=== PATIENT | female | born 1970 | race African-American/Black ===

== ENCOUNTER 2018-01-02 13:57 | Inpatient (IN) ==
--- NOTE | 2018-01-02 19:49 | ED ---
HPI General Chief Complaint: Nausea/Vomiting/Diarrhea Stated Complaint: Vomitting Time Seen by Provider: 01/02/18 19:38 Source: patient Mode of arrival: ambulatory Limitations: no limitations History of Present Illness HPI Narrative: The patient is a 47-year-old -[place] female who presents to the emergency for multiple complaints. The patient states she has been sleeping outside on the porch over the last several nights. The patient states she developed a subjective fever last night, felt like she was "burning up", and felt like her blood pressure was elevated. The patient then developed a bilateral frontal to temporal pulsating and sharp stabbing headache which is intermittent. Patient also complains of chills and a dry nonproductive cough. She denies any nausea, vomiting, diarrhea, or abdominal pain. She denies any dysuria. Symptoms are moderate. There are no current alleviating or exacerbating factors. The patient states she has been noncompliant with her antihypertensive medication for the last week. MD Complaint: headache Onset (ago): day(s) Onset description: gradual Location: frontal and temporal Severity: moderate Severity scale (1-10): 5 Quality: pulsatile and sharp Relieving factors: nothing Exacerbating factors: none Associated symptoms: fever and cough Other symptoms: cough and malaise Treatments prior to arrival: none Related Data Home Medications Medication Instructions Recorded Confirmed Unable to Obtain Home Meds 01/02/18 01/02/18 Allergies Allergy/AdvReac Type Severity Reaction Status Date / Time No Known Allergies Allergy Unverified 01/02/18 19:50 Review of Systems Except as stated in HPI: all other systems reviewed are negative Constitutional Reports body ache(s) and Reports fever(s) ENT Denies dizziness Cardiovascular Denies chest pain and Denies diaphoresis Respiratory Reports cough Gastrointestinal Denies abdominal pain, Denies nausea and Denies vomiting Genitourinary Denies dysuria Neurologic Denies focal weakness PMFSH Medical History Medical History Patient denies medical problems (Acute) Surgical history unknown (Acute) Social History Social History Substance History: No History of Abuse Second Hand Smoke Exposure: No Smoking Status: Never smoker How Often Do You Have a Drink Containing Alcohol: Monthly or less Recent Travel in [facility] within the Last 8 Weeks: No Recent Out of Country Travel within the Last 8 Weeks: No Exam Narrative Exam Narrative: GENERAL: Awake, alert, pleasant 47-year-old female appears her stated age and is in no acute respiratory distress. SKIN: Focused skin assessment warm/dry. HEAD: Atraumatic. Normocephalic. EYES: Pupils equal and round. Pupils are 3 mm bilateral and reactive. No injection or drainage. ENT: No nasal bleeding or discharge. Mucous membranes pink and moist. NECK: Trachea midline. No JVD. No meningeal signs. CARDIOVASCULAR: Regular rate and rhythm. No murmur appreciated. RESPIRATORY: No accessory muscle use. Clear to auscultation. Breath sounds equal bilaterally. GASTROINTESTINAL: Abdomen soft, non-tender, nondistended. No rebound tenderness , guarding, or rigidity. MUSCULOSKELETAL: No obvious deformities. No clubbing. No cyanosis. No edema. NEUROLOGICAL: Awake and alert. No obvious cranial nerve deficits. Motor grossly within normal limits. Normal speech. Nonfocal on exam. PSYCHIATRIC: Appropriate mood and affect; insight and judgment normal. Course Consultations Consultation #1: I discussed the patient with Dr. Buck who agrees with admission, will request full admit as patient does have Sirs criteria with Rock ptosis, bandemia, and acute kidney injury. Time: 00:01 Initial Documented Vital Signs Temperature 99.1 F 01/02/18 14:41 Pulse Rate 118 H 01/02/18 14:41 Blood Pressure 165/93 H 01/02/18 14:41 Pulse Oximetry 95 01/02/18 14:41 Last Documented Vital Signs Temperature 99.0 F 01/02/18 23:50 Pulse Rate 89 01/02/18 21:49 Respiratory Rate 18 01/02/18 21:49 Blood Pressure 126/82 01/02/18 21:49 Pulse Oximetry 98 01/02/18 21:49 Medical Decision Making [facility] Narrative Medical decision making narrative: IV was established, labs are drawn and sent, the patient was placed on cardiac telemetry monitoring and continuous pulse oximetry monitoring. The patient was administered morphine, Reglan, Benadryl, and IV fluids for her headache. Bedside UA test was obtained, was negative. CT of the brain was obtained. Chest x-ray was obtained, negative for infiltrate. Influenza screen was sent to lab, negative. The patient's white count was elevated, lactic acid is elevated at 2.9, CBC does reveal bandemia. Therefore, blood cultures were sent to lab. UA reveals 177 WBCs, most likely a source of the patient's sepsis. Therefore, the patient was administered Rocephin 1 g intravenously while cultures are pending. CT the brain is negative. The patient has been admitted to the medical service. Differential Diagnosis Differential Diagnosis: Differential diagnosis includes tension headache, hypertensive urgency, subarachnoid hemorrhage, meningitis, influenza, pyelonephritis, pneumonia, bronchitis, viral syndrome. Lab Data Lab results reviewed: Yes I reviewed the patient's lab results. Lab results narrative: White count is elevated at 13.7 with bandemia of 13%. Lactic acid elevated at 2.9 with bicarbonate decreased at 18. The patient's creatinine is elevated at 2.0. UA reveals 177 WBCs, consistent with UTI/ pyelonephritis. Result diagrams: 01/02/18 20:42 01/02/18 20:42 Lab Results 01/02/18 01/02/18 01/02/18 Range/Units 20:42 20:42 22:15 WBC 13.7 H (4.0-11.0) th/mm3 RBC 4.43 (4.00-5.30) mil/mm3 Hgb 13.2 (11.6-15.3) gm/dL Hct 39.7 (35.0-46.0) % MCV 89.8 (80.0-100.0) fL MCH 29.7 (27.0-34.0) pg MCHC 33.1 (32.0-36.0) % RDW 14.2 (11.6-17.2) % Plt Count 127 L (150-450) th/mm3 MPV 10.4 (7.0-11.0) fL Prelim Diff (Auto) Slide review pending Neut % (Auto) 86.9 H (16.0-70.0) % Lymph % (Auto) 3.4 L (9.0-44.0) % Dawson % (Auto) 9.4 H (0.0-8.0) % Eos % (Auto) 0.1 (0.0-4.0) % Baso % (Auto) 0.2 (0.0-2.0) % Neut # (Auto) 11.9 H (1.8-7.7) th/mm3 Lymph # (Auto) 0.5 L (1.0-4.8) th/mm3 Dawson # (Auto) 1.3 H (0.0-0.9) th/mm3 Eos # (Auto) 0.0 (0.0-0.4) th/mm3 Baso # (Auto) 0.0 (0.0-0.2) th/mm3 WBC Differential Manual diff final Seg Neuts % (Manual) 78 H (16-70) % Band Neuts % (Manual) 13 H (0-6) % Lymphocytes % (Manual) 4 L (9-44) % Monocytes % (Manual) 5 (0-8) % Abs Neuts (Manual) 12.5 H (1.8-7.7) th/mm3 Differential Comment . Dohle Bodies Present H (None) Platelet Estimate Low L (Normal) Platelet Morphology Enlarged H (Normal) Sodium 132 L (136-145) meq/L Potassium 3.2 L (3.5-5.1) meq/L Chloride 95 L (98-107) meq/L Carbon Dioxide 18.6 L (21.0-32.0) meq/L Anion Gap 18 H (5-15) meq/L BUN 23 H (7-18) mg/dL Creatinine 2.00 H (0.50-1.00) mg/dL Estimated GFR 33 L (>89) mL/min Random Glucose 103 (74-106) mg/dL Lactic Acid 2.9 H (0.4-2.0) mmol/L Calcium 9.0 (8.5-10.1) mg/dL Total Bilirubin 1.3 H (0.2-1.0) mg/dL AST 87 H (15-37) U/L ALT 48 (10-53) U/L Alkaline Phosphatase 86 (45-117) U/L Total Protein 9.3 H (6.4-8.2) g/dL Albumin 2.9 L (3.4-5.0) g/dL Urine Color (Yellw/Straw) Urine Clarity (Clear) Urine pH (5.0-8.5) Ur Specific [place] (1.002-1.035) Urine Protein (Neg-Trace) mg/dL Urine Glucose (UA) (Negative) mg/dL Urine Ketones (Negative) mg/dL Urine Occult Blood (Negative) Urine Nitrate (Negative) Urine Bilirubin (Negative) Urine Urobilinogen (Less than 2) mg/dL Ur Leukocyte Esterase (Negative) Urine RBC (0-3) /hpf Urine WBC (0-5) /hpf Urine WBC Clumps (None) Ur Squamous Epith Cells (0-5) /hpf Urine Bacteria (None) /hpf Hyaline Casts (0-3) /lpf Urine Mucus (Occasional) /lpf Micro UA Comment Urine Culture Comments 01/02/18 Range/Units 23:06 WBC (4.0-11.0) th/mm3 RBC (4.00-5.30) mil/mm3 Hgb (11.6-15.3) gm/dL Hct (35.0-46.0) % MCV (80.0-100.0) fL MCH (27.0-34.0) pg MCHC (32.0-36.0) % RDW (11.6-17.2) % Plt Count (150-450) th/mm3 MPV (7.0-11.0) fL Prelim Diff (Auto) Neut % (Auto) (16.0-70.0) % Lymph % (Auto) (9.0-44.0) % Dawson % (Auto) (0.0-8.0) % Eos % (Auto) (0.0-4.0) % Baso % (Auto) (0.0-2.0) % Neut # (Auto) (1.8-7.7) th/mm3 Lymph # (Auto) (1.0-4.8) th/mm3 Dawson # (Auto) (0.0-0.9) th/mm3 Eos # (Auto) (0.0-0.4) th/mm3 Baso # (Auto) (0.0-0.2) th/mm3 WBC Differential Seg Neuts % (Manual) (16-70) % Band Neuts % (Manual) (0-6) % Lymphocytes % (Manual) (9-44) % Monocytes % (Manual) (0-8) % Abs Neuts (Manual) (1.8-7.7) th/mm3 Differential Comment Dohle Bodies (None) Platelet Estimate (Normal) Platelet Morphology (Normal) Sodium (136-145) meq/L Potassium (3.5-5.1) meq/L Chloride (98-107) meq/L Carbon Dioxide (21.0-32.0) meq/L Anion Gap (5-15) meq/L BUN (7-18) mg/dL Creatinine (0.50-1.00) mg/dL Estimated GFR (>89) mL/min Random Glucose (74-106) mg/dL Lactic Acid (0.4-2.0) mmol/L Calcium (8.5-10.1) mg/dL Total Bilirubin (0.2-1.0) mg/dL AST (15-37) U/L ALT (10-53) U/L Alkaline Phosphatase (45-117) U/L Total Protein (6.4-8.2) g/dL Albumin (3.4-5.0) g/dL Urine Color Deborah (Yellw/Straw) Urine Clarity Turbid H (Clear) Urine pH 5.0 (5.0-8.5) Ur Specific [place] 1.014 (1.002-1.035) Urine Protein 100 H (Neg-Trace) mg/dL Urine Glucose (UA) Negative (Negative) mg/dL Urine Ketones Negative (Negative) mg/dL Urine Occult Blood Large H (Negative) Urine Nitrate Negative (Negative) Urine Bilirubin Negative (Negative) Urine Urobilinogen 2.0 H (Less than 2) mg/dL Ur Leukocyte Esterase Large H (Negative) Urine RBC 30 H (0-3) /hpf Urine WBC 177 H (0-5) /hpf Urine WBC Clumps Occasional H (None) Ur Squamous Epith Cells 7 (0-5) /hpf Urine Bacteria Many H (None) /hpf Hyaline Casts 8 (0-3) /lpf Urine Mucus Few H (Occasional) /lpf Micro UA Comment Culture indicated Urine Culture Comments Culture indicated Imaging Data Radiologist's impression: Chest X-Ray 01/02/18 19:53 CONCLUSION: No acute cardiopulmonary process. Head CT 01/03/18 19:50 CONCLUSION: Negative CT Head non contrast. ECG Data EKG Prior to Arrival: No Attestation: I personally reviewed and interpreted this ECG as follows: Interpretation: The EKG reveals normal sinus rhythm with a rate of 93, no ischemia or ectopy noted. Discharge Plan Discharge Disposition Patient Disposition: 30 Still Patient Discharge Condition Condition: Stable Discharge Details Diagnosis: SIRS (systemic inflammatory response syndrome), Bandemia, Acute kidney injury, Pyelonephritis Physicians Team ED Provider: Hill Smith Primary Care Provider: Primary Care Arlin Siu Attending Provider: Yecenia Buck Discharge Interventions Interventions: Vital Signs Last Done: 01/02/18 23:50 Status ED Status: Admitted Patient
[2018-01-02] MEDS ORDERED: Acetaminophen 325 MG Tablet PO ONE (19:50)
[2018-01-02] MEDS ORDERED: Morphine Sulfate Inj 8 MG/ML Vial IV.PUSH ONE (19:50)
[2018-01-02] MEDS ORDERED: Sod Chloride 0.9% Inj 1,000 ML IV.SIG ONE ×2 (19:50→23:16)
--- NOTE | 2018-01-02 21:32 | XR ---
EXAM DATE: 01/02/2018 9:17 PM EDT AGE/SEX: 47 years / Female INDICATIONS: Chest pain and cough. CLINICAL DATA: This is the patient's initial encounter. Patient reports that signs and symptoms have been present for 1 day and indicates a pain score of 3/10. MEDICAL/SURGICAL HISTORY: None. None. COMPARISON: No prior exams available for comparison. FINDINGS: A single AP view of the chest demonstrates the lungs to be symmetrically aerated without evidence of mass, infiltrate or effusion. The cardiomediastinal contours are unremarkable. Osseous structures a re intact. CONCLUSION: No acute cardiopulmonary process. Electronically signed by: Pankaj Raymundo MD 01/02/2018 9:30 PM EDT
[2018-01-02 21:41] LABS: Baso % (Auto) 0.2 % (0.0-2.0); Eos % (Auto) 0.1 % (0.0-4.0); Hematocrit 39.7 % (35.0-46.0); Hemoglobin 13.2 gm/dL (11.6-15.3); Lymph # (Auto) 0.5 th/mm3 (1.0-4.8); Lymph % (Auto) 3.4 % (9.0-44.0); Mean Corpuscular HGB Conc 33.1 % (32.0-36.0); Mean Corpuscular Hemoglobin 29.7 pg (27.0-34.0); Mean Corpuscular Volume 89.8 fL (80.0-100.0); Mean Platelet Volume 10.4 fL (7.0-11.0); Mono # (Auto) 1.3 th/mm3 (0.0-0.9); Mono % (Auto) 9.4 % (0.0-8.0); Neut # (Auto) 11.9 th/mm3 (1.8-7.7); Neut % (Auto) 86.9 % (16.0-70.0); Platelet Count 127 th/mm3 (150-450); Red Blood Count 4.43 mil/mm3 (4.00-5.30); Red Cell Distribution Width 14.2 % (11.6-17.2); White Blood Count 13.7 th/mm3 (4.0-11.0)
[2018-01-02 21:54] LABS: Albumin 2.9 g/dL (3.4-5.0); Anion Gap 18 meq/L (5-15); Aspartate Aminotransferase 87 U/L (15-37); Blood Urea Nitrogen 23 mg/dL (7-18); Carbon Dioxide 18.6 meq/L (21.0-32.0); Chloride 95 meq/L (98-107); Glomerular Filtration Rate 33 mL/min (>89); Glucose,Random 103 mg/dL (74-106); Potassium 3.2 meq/L (3.5-5.1); Sodium 132 meq/L (136-145)
[2018-01-02 21:56] LABS: Alanine Aminotransferase 48 U/L (10-53)
[2018-01-02 21:59] LABS: Alkaline Phosphatase 86 U/L (45-117); Total Protein 9.3 g/dL (6.4-8.2)
[2018-01-02 22:34] LABS: Lymphocytes 4 % (9-44); Monocytes 5 % (0-8)
[2018-01-02 22:35] LABS: Dohle Bodies Present
[2018-01-02] MEDS ORDERED: Bisacodyl 10 MG Supp RECTAL PRN (23:57)
[2018-01-02] MEDS ORDERED: Temazepam 15 MG Capsule PO PRN (23:57)
[2018-01-03 00:11] LABS: Bacteria,Urine Many /hpf; Bilirubin,Urine Negative (Negative); Clarity,Urine Turbid (Clear); Color,Urine Amber (Yellw/Straw); Glucose,Urine (UA) Negative (Negative); Hyaline Casts,Urine 8 /lpf (0-3); Leukocyte Esterase,Urine Large (Negative); Mucus,Urine Few /lpf (Occasional); Nitrite,Urine Negative (Negative); Specific Gravity,Urine 1.014 (1.002-1.035); Squamous Epithelial Cell,Urine 7 /hpf (0-5)
--- NOTE | 2018-01-03 00:23 | CT ---
EXAM DATE: 01/03/2018 12:17 AM EDT AGE/SEX: 47 years / Female INDICATIONS: Cephalgia. CLINICAL DATA: This is the patient's initial encounter. Patient reports that signs and symptoms have been present for 2 days and indicates a pain score of 5/10. MEDICAL/SURGICAL HISTORY: None. None. RADIATION DOSE: 56.77 CTDI (mGy) COMPARISON: No prior exams available for comparison. TECHNIQUE: CT of the head without contrast. Using automated exposure control and adjustment of the mA and/or kV according to patient size, radiation dose was kept as low as reasonably achievable to ob tain optimal diagnostic quality images. DICOM format image data is available electronically for revi ew and comparison. FINDINGS: Cerebrum: The ventricles are normal for age. No evidence of midline shift, mass lesion, hemorrhage or acute infarction. No extraaxial fluid collections are seen. Posterior Fossa: The cerebellum and brainstem are intact. The 4th ventricle is midline. The cerebe llopontine angle is unremarkable. Extracranial: The visualized portion of the orbits is intact. Skull: The calvaria is intact. No evidence of skull fracture. CONCLUSION: Negative CT Head non contrast. Electronically signed by: Pankaj Little MD 01/03/2018 12:22 AM EDT
[2018-01-03] MEDS: Sod Chloride 0.9% Inj 1,000 ML IV.CONT SCH ×3 (01:31→20:41)
--- NOTE | 2018-01-03 01:55 | P.HPIM ---
History of Present Illness Primary Care Physician: No Primary Care Physician History of Present Illness: This is a 47-year-old female with a PMH of HTN who presented to the ER with complaints of malaise, subjective fever/chills and headache. Pt is poor historian, difficult to obtain concrete information, but states she stopped taking her BP medications approx 1 month ago, in addition to several other medications but cannot tell me which ones. Notes ongoing headache since then. Now w/ fever/chills x1 day in addition to generalized fatigue/malaise. Denies cough, chest pain or sick contacts. No nausea, vomiting or diarrhea. On arrival, BP 126/82, HR 89, O2 sat 98% on RA, Temp 100.8. WBC 13.7. Platelets 127, bands 13%. Creatinine 2.0, no previous labs for comparison. Lactic Acid 2.9. UA positive UTI. CXR with no acute findings. CT Head negative. - Diagnosis (1) SIRS (systemic inflammatory response syndrome) (2) BESSY (acute kidney injury) (3) UTI (urinary tract infection) Inpatient Certification: I certify that the inpatient services were ordered in accordance with Medicare regulations governing the order. This includes certification that hospital inpatient services are reasonable and necessary and in the case of services not specified as inpatient-only under 42 CFR 419.22(n), that they are appropriately provided as inpatient services in accordance to with the 2-midnight benchmark under 43 CFR 412.3(e) Estimated Total Length of Stay (Days): 2 Plans for Post Hospital Care: Not yet determined Review of Systems All other systems reviewed negative except as stated in [facility] - History History Provided By: Patient - Medical History Medical History: Medical History (Last Updated 01/02/18 @ 19:51 by Panda Costa) Patient denies medical problems Surgical history unknown - Tobacco History Second Hand Smoke Exposure: No Smoking Status: Never smoker - Alcohol History How Often Do You Have a Drink Containing Alcohol: Monthly or less - Substance Use History Substance History: No History of Abuse - Travel History Recent Travel in the [place] Within the Last 8 Weeks: No Recent Travel Out of the Country Within the Last 8 Weeks: No - Immunization History Tetanus Immunization: <5 Years Medications and Allergies Active Medications: Active Medications Acetaminophen (Tylenol) 650 mg PO Q4H PRN PRN Reason: FEVER/PAIN 1-2 Al Hydroxide/Mg Hydroxide (Milk Of Zuleika Gupta) 30 ml PO Q12H PRN PRN Reason: Mild Constipation Bisacodyl (Dulcolax Supp) 10 mg RECTAL DAILY PRN PRN Reason: SEVERE CONSITIPATION Sodium Chloride (Ns Inj) 1,000 mls @ 100 mls/hr IV.CONT .Q10H LUZ MARINA Last Admin: 01/03/18 01:31 Dose: 100 mls/hr Ceftriaxone Sodium 1,000 mg/ (Sodium Chloride) 100 mls @ 200 mls/hr IV.SIG Q24H LUZ MARINA Lactulose (Lactulose Liq) 30 ml PO DAILY PRN PRN Reason: SEVERE CONSITIPATION Metoclopramide HCl (Reglan Inj) 5 mg IV.PUSH Q6H PRN; Protocol PRN Reason: NAUSEA OR VOMITING Senna/Docusate Sodium (Irina-Colace) 1 tab PO BID LUZ MARINA Sennosides (Senokot) 17.2 mg PO Q12H PRN PRN Reason: Moderate Constipation Sodium Chloride (Ns Flush) 2 ml IV.FLUSH PRN PRN PRN Reason: FLUSH AFTER USING IV ACCESS Temazepam (Restoril) 15 mg PO HS PRN PRN Reason: INSOMNIA Allergies Allergy/AdvReac Type Severity Reaction Status Date / Time No Known Allergies Allergy Unverified 01/02/18 19:50 Home Medications Medication Instructions Recorded Confirmed Type Unable to Obtain Home Meds 01/02/18 01/02/18 History Exam Vital signs: Vital Signs 01/02/18 14:41 01/02/18 19:51 01/02/18 21:49 Temperature 99.1 F 100.8 F H Pulse Rate 118 H 89 89 Respiratory Rate 18 Blood Pressure 165/93 H 126/82 Pulse Oximetry 95 98 01/02/18 23:50 01/02/18 23:57 01/03/18 01:17 Temperature 99.0 F 99.4 F Pulse Rate 87 89 Respiratory Rate 18 Blood Pressure 133/84 Pulse Oximetry 99 Intake & Output 01/02/18 01/02/18 01/03/18 06:59 18:59 06:59 Intake Total 1000 / 1000 Balance 1000 / 1000 Weight 70 kg Intake: IV 1000 / 1000 NS Inj 1,000 ML @ Wide Open IV. 1000 / 1000 SIG BOLUS ONE Rx#:[id number] Narrative: PE: GENERAL: Middle-aged black female in no acute distress. HEENT: PERRLA, EOMI. No scleral icterus or conjunctival pallor. No lid lag or facial droop. CARDIOVASCULAR: Regular rate and rhythm. No obvious murmurs to auscultation. No chest tenderness to palpation. RESPIRATORY: No obvious rhonchi or wheezing. Clear to auscultation. Breath sounds equal bilaterally. GASTROINTESTINAL: Abdomen soft, non-tender, nondistended. BS normal. MUSCULOSKELETAL: Extremities without clubbing, cyanosis, or edema. No obvious deformities. NEUROLOGICAL: Awake, alert and oriented x4. No focal neurologic deficits. Moving both upper and lower extremities spontaneously. Results - Labs CBC & Chem 7: 01/02/18 20:42 01/02/18 20:42 Labs: Short CBC 01/02/18 Range/Units 20:42 WBC 13.7 H (4.0-11.0) th/mm3 Hgb 13.2 (11.6-15.3) gm/dL Hct 39.7 (35.0-46.0) % Plt Count 127 L (150-450) th/mm3 BMP 01/02/18 20:42 Sodium 132 L Potassium 3.2 L Chloride 95 L Carbon Dioxide 18.6 L BUN 23 H Creatinine 2.00 H Calcium 9.0 Liver Function 01/02/18 Range/Units 20:42 Total Bilirubin 1.3 H (0.2-1.0) mg/dL AST 87 H (15-37) U/L ALT 48 (10-53) U/L Alkaline Phosphatase 86 (45-117) U/L Albumin 2.9 L (3.4-5.0) g/dL Urine 01/02/18 Range/Units 23:06 Urine Color Deborah (Yellw/Straw) Urine Clarity Turbid H (Clear) Urine pH 5.0 (5.0-8.5) Ur Specific [place] 1.014 (1.002-1.035) Urine Protein 100 H (Neg-Trace) mg/dL Urine Glucose (UA) Negative (Negative) mg/dL - Imaging Impressions Chest X-Ray 01/02/18 19:53 CONCLUSION: No acute cardiopulmonary process. Head CT 01/03/18 19:50 CONCLUSION: Negative CT Head non contrast. Caprini VTE Risk Assessment Caprini VTE Risk Assessment: No/Low Risk (score <= 1) Caprini Risk Assessment Model: Point Value = 1 Point Value = 2 Point Value = 3 Point Value = 5 Age 41-60 Minor surgery BMI > 25 kg/m2 Swollen legs Varicose veins or History of unexplained or recurrent spontaneous Oral contraceptives or hormone replacement Sepsis (< 1 month) Serious lung disease, including pneumonia (< 1 month) Abnormal pulmonary function Acute myocardial infarction Congestive heart failure (< 1 month) History of inflammatory bowel disease Medical patient at bed rest Age 61-74 Arthroscopic surgery Major open surgery (> 45 min) Laparoscopic surgery (> 45 min) Malignancy Confined to bed (> 72 hours) Immobilizing plaster cast Central venous access Age >= 75 History of VTE Family history of VTE Factor V Leiden Prothrombin [id number] Lupus anticoagulant Anticardiolipin antibodies Elevated serum homocysteine Heparin-induced thrombocytopenia Other congenital or acquired thrombophilia Stroke (< 1 month) Elective arthroplasty Hip, pelvis, or leg fracture Acute spinal cord injury (< 1 month) Prophylaxis Regimen: Total Risk Factor Score Risk Level Prophylaxis Regimen 0-1 Low Early ambulation 2 Moderate Order ONE of the following: *Sequential Compression Device (SCD) *Heparin 5000 units SQ BID 3-4 Higher Order ONE of the following medications: *Heparin 5000 units SQ TID *Enoxaparin/Lovenox 40 mg SQ daily (WT < 150 kg, CrCl > 30 mL/min) *Enoxaparin/Lovenox 30 mg SQ daily (WT < 150 kg, CrCl > 10-29 mL/min) *Enoxaparin/Lovenox 30 mg SQ BID (WT < 150 kg, CrCl > 30 mL/min) AND/OR *Sequential Compression Device (SCD) 5 or more Highest Order ONE of the following medications: *Heparin 5000 units SQ TID (Preferred with Epidurals) *Enoxaparin/Lovenox 40 mg SQ daily (WT < 150 kg, CrCl > 30 mL/min) *Enoxaparin/Lovenox 30 mg SQ daily (WT < 150 kg, CrCl > 10-29 mL/min) *Enoxaparin/Lovenox 30 mg SQ BID (WT < 150 kg, CrCl > 30 mL/min) AND *Sequential Compression Device (SCD) Assessment and Plan - Assessment (1) SIRS (systemic inflammatory response syndrome) Code(s): R65.10 - Systemic inflammatory response syndrome (SIRS) of non- infectious origin without acute organ dysfunction Status: Acute (2) BESSY (acute kidney injury) Code(s): N17.9 - Acute kidney failure, unspecified Status: Acute (3) UTI (urinary tract infection) Code(s): N39.0 - Urinary tract infection, site not specified Status: Acute - Plan A/P: 1. SIRS/Sepsis: Temp 100.8, WBC 13, Lactic Acid 2.9, Source-UTI. S/p Blood Cultures, Rocephin IV, follow up cultures, continue IV Abx, IVF for hydration, repeat Lactic Acid. CXR w/ no acute findings, images reviewed. 2. UTI: U/a w/ UTI, IVF, IV Abx, Monitor I/O 3. BESSY: Creatinine 2.0, no previous labs for comparison however presumably new. IVF for hydration, repeat labs in am. 4. DVT Prophylaxis: SCD/Teds 5. Social work for d/c planning as needed. 6. Case discussed w/ ER physician at length, labs/records/imaging reviewed by me.
[2018-01-03 07:28] LABS: Baso % (Auto) 0.1 % (0.0-2.0); Eos # (Auto) 0.1 th/mm3 (0.0-0.4); Eos % (Auto) 0.6 % (0.0-4.0); Hematocrit 35.6 % (35.0-46.0); Hemoglobin 11.9 gm/dL (11.6-15.3); Lymph # (Auto) 0.3 th/mm3 (1.0-4.8); Lymph % (Auto) 2.7 % (9.0-44.0); Mean Corpuscular HGB Conc 33.5 % (32.0-36.0); Mean Corpuscular Volume 89.8 fL (80.0-100.0); Mean Platelet Volume 10.3 fL (7.0-11.0); Mono # (Auto) 0.5 th/mm3 (0.0-0.9); Mono % (Auto) 4.7 % (0.0-8.0); Neut # (Auto) 9.8 th/mm3 (1.8-7.7); Neut % (Auto) 91.9 % (16.0-70.0); Platelet Count 106 th/mm3 (150-450); Red Blood Count 3.97 mil/mm3 (4.00-5.30); White Blood Count 10.7 th/mm3 (4.0-11.0)
[2018-01-03 08:17] LABS: Alanine Aminotransferase 40 U/L (10-53); Albumin 2.4 g/dL (3.4-5.0); Alkaline Phosphatase 69 U/L (45-117); Anion Gap 16 meq/L (5-15); Aspartate Aminotransferase 69 U/L (15-37); Blood Urea Nitrogen 26 mg/dL (7-18); Calcium 7.9 mg/dL (8.5-10.1); Carbon Dioxide 17.1 meq/L (21.0-32.0); Chloride 102 meq/L (98-107); Glomerular Filtration Rate 37 mL/min (>89); Glucose,Random 146 mg/dL (74-106); Potassium 3.1 meq/L (3.5-5.1); Sodium 135 meq/L (136-145); Total Protein 7.9 g/dL (6.4-8.2)
[2018-01-03 09:28] LABS: Dohle Bodies Present; Lymphocytes 1 % (9-44); Monocytes 2 % (0-8)
[2018-01-03] MEDS: Senna/Docusate Sodium 8.6/50 MG Tablet PO SCH ×2 (09:53→22:21)
[2018-01-03] MEDS: Acetaminophen 325 MG Tablet PO PRN ×2 (10:08→17:37)
--- NOTE | 2018-01-03 15:45 | US ---
EXAM DATE: 01/03/2018 3:37 PM EDT AGE/SEX: 47 years / Female INDICATIONS: Systemic inflammatory response syndrome. Leukocytosis with bandemia, kidney. CLINICAL DATA: This is the patient's initial encounter. Patient reports that signs and symptoms have been present for 1 week and indicates a pain score of 0/10. MEDICAL/SURGICAL HISTORY: . Hypertension. . Cholecystectomy. COMPARISON: [facility], US ABDOMEN LIVER, 02/27/2017. . MEASUREMENTS: Right Kidney:__13.5 x 6.0 x 5.8 cm Left Kidney:__12.2 x 6.2 x 5.2 cm FINDINGS: The kidneys are normal bilaterally without evidence of mass or hydronephrosis. The bladder is decompr essed and not adequately evaluated. CONCLUSION: Unremarkable ultrasound examination of the kidneys. Electronically signed by: Jacky Mariee MD 01/03/2018 3:44 PM EDT
[2018-01-03] MEDS: Piperacil/Tazo 3.375 GM Premix 50 ML IV.SIG SCH ×2 (17:37→22:20)
[2018-01-04] MEDS: Piperacil/Tazo 3.375 GM Premix 50 ML IV.SIG SCH ×4 (04:06→21:34)
[2018-01-04] MEDS: Sod Chloride 0.9% Inj 1,000 ML IV.CONT SCH (05:04)
[2018-01-04 07:24] LABS: Baso % (Auto) 0.3 % (0.0-2.0); Eos % (Auto) 0.4 % (0.0-4.0); Hematocrit 32.8 % (35.0-46.0); Lymph # (Auto) 0.5 th/mm3 (1.0-4.8); Mean Corpuscular HGB Conc 33.5 % (32.0-36.0); Mean Corpuscular Hemoglobin 29.8 pg (27.0-34.0); Mean Corpuscular Volume 88.9 fL (80.0-100.0); Mean Platelet Volume 9.7 fL (7.0-11.0); Mono # (Auto) 1.4 th/mm3 (0.0-0.9); Mono % (Auto) 14.9 % (0.0-8.0); Neut # (Auto) 7.5 th/mm3 (1.8-7.7); Neut % (Auto) 79.4 % (16.0-70.0); Platelet Count 106 th/mm3 (150-450); Red Blood Count 3.69 mil/mm3 (4.00-5.30); Red Cell Distribution Width 14.2 % (11.6-17.2); White Blood Count 9.5 th/mm3 (4.0-11.0)
[2018-01-04 08:28] LABS: Calcium 8.1 mg/dL (8.5-10.1); Carbon Dioxide 17.9 meq/L (21.0-32.0)
[2018-01-04 08:40] LABS: Potassium 2.5 meq/L (3.5-5.1)
[2018-01-04] MEDS: Senna/Docusate Sodium 8.6/50 MG Tablet PO SCH ×2 (08:53→21:34)
--- NOTE | 2018-01-04 12:17 | P.PNIM ---
Subjective Interval history: Patient says she is feeling a little better. Denies any chest pain shortness of breath. Reports that dysuria has improved. Denies any nausea vomiting. Physical Exam Vital signs: Vital Signs 01/03/18 16:00 01/03/18 19:21 01/03/18 22:10 Temperature 102.1 F H 98.1 F Pulse Rate 88 85 Respiratory Rate 14 18 18 Blood Pressure 191/119 H 131/83 Pulse Oximetry 100 100 01/04/18 00:40 01/04/18 03:55 01/04/18 06:20 Temperature 98.6 F 98.4 F Pulse Rate 78 80 74 Respiratory Rate 17 17 Blood Pressure 117/63 118/68 Pulse Oximetry 100 100 Intake & Output 01/03/18 01/04/18 01/04/18 18:59 06:59 18:59 Intake Total 1150 / 1150 Balance 1150 / 1150 Intake: IV 1150 / 1150 NS Inj 1,000 ML @ 100 mls/hr IV 1000 / 1000 .CONT .Q10H LUZ [facility]INA Rx#:[id number] Zosyn 3.375 GM Premix 50 ML @ 150 / 150 100 mls/hr IV.SIG Q6H LUZ MARINA Rx#: [id number] Other: # Voids 6 # Bowel Movements 2 Narrative: GENERAL: Sitting up in bed. Appears controlled. SKIN: Warm and dry. HEAD: Normocephalic. EYES: No scleral icterus. No injection or drainage. NECK: Supple, trachea midline. No JVD. CARDIOVASCULAR: Regular rate and rhythm without murmurs, gallops, or rubs. RESPIRATORY: Breath sounds equal bilaterally. No accessory muscle use. GASTROINTESTINAL: Abdomen soft, non-tender, nondistended. MUSCULOSKELETAL: No cyanosis, or edema. BACK: Nontender without obvious deformity. No CVA tenderness. Results - Labs CBC & Chem 7: 01/04/18 06:10 01/04/18 06:10 Laboratory Results - last 24 hr 01/02/18 01/03/18 01/03/18 23:06 14:35 14:35 WBC RBC Hgb Hct MCV MCH MCHC RDW Plt Count MPV Neut % (Auto) Lymph % (Auto) [place] % (Auto) Eos % (Auto) Baso % (Auto) Neut # (Auto) Lymph # (Auto) [place] # (Auto) Eos # (Auto) Baso # (Auto) WBC Differential Differential Comment Sodium Potassium Chloride Carbon Dioxide Anion Gap BUN Creatinine Estimated GFR Random Glucose Lactic Acid 1.9 Calcium Magnesium 1.6 Urine Color Deborah Urine Clarity Turbid H Urine pH 5.0 Ur Specific [place] 1.014 Urine Protein 100 H Urine Glucose (UA) Negative Urine Ketones Negative Urine Occult Blood Large H Urine Nitrate Negative Urine Bilirubin Negative Urine Urobilinogen 2.0 H Ur Leukocyte Esterase Large H Urine RBC 30 H Urine WBC 177 H Urine WBC Clumps Occasional H Ur Squamous Epith Cells 7 Urine Bacteria Many H Hyaline Casts 8 Urine Mucus Few H Micro UA Comment Culture indicated Urine Culture Comments Culture indicated 01/04/18 01/04/18 06:10 06:10 WBC 9.5 RBC 3.69 L Hgb 11.0 L Hct 32.8 L MCV 88.9 MCH 29.8 MCHC 33.5 RDW 14.2 Plt Count 106 L MPV 9.7 Neut % (Auto) 79.4 H Lymph % (Auto) 5.0 L [place] % (Auto) 14.9 H Eos % (Auto) 0.4 Baso % (Auto) 0.3 Neut # (Auto) 7.5 Lymph # (Auto) 0.5 L [place] # (Auto) 1.4 H Eos # (Auto) 0.0 Baso # (Auto) 0.0 WBC Differential . Differential Comment Auto diff final Sodium 136 Potassium 2.5 L* Chloride 104 Carbon Dioxide 17.9 L Anion Gap 14 BUN 28 H Creatinine 1.38 H Estimated GFR 50 L Random Glucose 100 Lactic Acid Calcium 8.1 L Magnesium Urine Color Urine Clarity Urine pH Ur Specific [place] Urine Protein Urine Glucose (UA) Urine Ketones Urine Occult Blood Urine Nitrate Urine Bilirubin Urine Urobilinogen Ur Leukocyte Esterase Urine RBC Urine WBC Urine WBC Clumps Ur Squamous Epith Cells Urine Bacteria Hyaline Casts Urine Mucus Micro UA Comment Urine Culture Comments Microbiology 01/02/18 23:06 Clean Catch Urine Urine Culture - Final Escherichia coli 01/03/18 20:42 Blood - Peripheral Aerobic Blood Culture - Preliminary No growth in 1 day 01/03/18 20:42 Blood - Peripheral Anaerobic Blood Culture - Preliminary No growth in 1 day 01/03/18 20:35 Blood - Peripheral Aerobic Blood Culture - Preliminary No growth in 1 day 01/03/18 20:35 Blood - Peripheral Anaerobic Blood Culture - Preliminary No growth in 1 day 01/02/18 23:25 Blood - Peripheral Aerobic Blood Culture - Preliminary gram negative rods 01/02/18 23:25 Blood - Peripheral Anaerobic Blood Culture - Preliminary gram negative rods 01/02/18 23:15 Blood - Peripheral Aerobic Blood Culture - Preliminary gram negative rods 01/02/18 23:15 Blood - Peripheral Anaerobic Blood Culture - Preliminary Escherichia coli - Imaging Impressions Abdomen/Bladder Ultrasound 01/03/18 00:00 CONCLUSION: Unremarkable ultrasound examination of the kidneys. Assessment and Plan - Assessment (1) SIRS (systemic inflammatory response syndrome) Code(s): R65.10 - Systemic inflammatory response syndrome (SIRS) of non- infectious origin without acute organ dysfunction Status: Acute (2) BESSY (acute kidney injury) Code(s): N17.9 - Acute kidney failure, unspecified Status: Acute (3) UTI (urinary tract infection) Code(s): N39.0 - Urinary tract infection, site not specified Status: Acute - Plan // severe Sepsis: Temp 100.8, WBC 13, Lactic Acid 2.9, Source-UTI. S/p Blood Cultures, Rocephin IV, follow up cultures, continue IV Abx, IVF for hydration, repeat Lactic Acid. CXR w/ no acute findings, images reviewed. = With acute kidney injury. Leukocytosis has improved. Urine has returned with pansensitive E. coli, however given the fact the patient still had fevers on Rocephin, will follow results of blood culture. Infectious disease consult pending. Continue antibiotics. Secondary to UTI. //Hypokalemia. Magnesium 1.6 yesterday. Potassium 2.5. rePlace. Monitor. //UTI: U/a w/ UTI, IVF, IV Abx, Monitor I/O // BESSY: Creatinine 2.0, no previous labs for comparison however presumably new. IVF for hydration, repeat labs in am. == Creatinine 1.4. Improving. //DVT Prophylaxis: SCD/Teds Discharge Planning: Await results of repeat blood cultures. Discharge when cleared by infectious disease.
[2018-01-04] MEDS ORDERED: Mag Sulf 1 gm/100 ml Premix 100 ML IV.SIG ONE (12:30)
[2018-01-04] MEDS: Potassium Chlor 10 mEq Premix 10 MEQ/100 ML PIGGYBACK IV.SIG SCH ×3 (12:45→18:04)
[2018-01-04 16:10] LABS: CKMB Percent 0.7 % (0.0-4.0); Creatine Kinase MB 1.4 ng/mL (0.5-3.6)
--- NOTE | 2018-01-04 17:38 | MB ---
cc: Pedro Trevino MD DATE: 01/04/2018 REQUESTING PHYSICIAN: Duran Lombardo MD REASON FOR CONSULTATION: Gram-negative bacteremia. HISTORY OF PRESENT ILLNESS: This is a 47-year-old black female who presented to the emergency department with fever, chills, nausea, vomiting, diarrhea. The patient is a poor historian. She states that she was brought by her boyfriend because she was feeling sick. Her boyfriend reporting that she has been sick for a couple of weeks, but she became worse a few days ago. She was having a lot of nausea and could not keep any fluids down, and she was also having fever, chills, and diarrhea. The patient was evaluated in the emergency department, and her temperature danica to 102.1 degrees yesterday evening. She was initially seen on 01/02/2018 and her temperature max was 100.8. Urinalysis was taken and it revealed 177 white cells. Urine and blood culture now has Escherichia coli. The patient is on antibiotics. She tells me that she feels a little better, but that she has headache. She states that she has a history of migraine headaches. Her white blood cell count was elevated at 13.7 on 01/02/2018 and it is down to 9.5. She reported that she had burning on urination prior to admission. The patient is also noted to have acute kidney disease with estimated GFR of 37 yesterday. The estimated GFR is up to 50 today. She also notes having pain in the knees. PAST MEDICAL HISTORY: Denies. The patient, however, reports that she has history of migraine headaches. ALLERGIES: NO KNOWN DRUG ALLERGIES. MEDICATIONS: 1. Vasotec. 2. Lactulose. 3. Piperacillin/tazobactam 4. Irina-Colace. SOCIAL HISTORY: No tobacco, no alcohol, denies illicit drugs. FAMILY HISTORY: Noncontributory. REVIEW OF SYSTEMS: Pertinent's mentioned above in the history of present illness. All other systems were reviewed and are negative. PHYSICAL EXAMINATION: GENERAL: She is a well-developed female who is in no acute distress. She looks chronically ill. VITAL SIGNS: Include temperature 98.8, blood pressure 124/86, respirations 20, heart rate 72. HEENT: Her head is atraumatic. Extraocular movements grossly intact. Pupils reactive to light. Pale muddy sclerae. No visible icterus. Oropharynx: Moist mucosa. NECK: Supple without adenopathy. LUNGS: Clear breath sounds bilaterally. HEART: Regular S1, S2, without audible murmur. ABDOMEN: Bowel sounds present. Soft. No tenderness appreciated. RECTAL: Not performed. EXTREMITIES: No clubbing. No cyanosis or edema. Mild swelling at the knees. SKIN: No diffuse rash. NEUROLOGIC: No gross focal findings. PSYCHIATRIC: The patient is calm and cooperative. LABORATORY DATA: WBC 9.5, platelets 106, 79% neutrophils, 14% monocytes, hemoglobin 11.0. Creatinine 1.38, BUN 28, sodium 136. IMPRESSION: 1. Sepsis secondary to Escherichia coli from urine. 2. Urinary tract infection due to Escherichia coli. 3. Acute kidney disease. RECOMMENDATIONS: 1. Continue piperacillin/tazobactam. 2. Monitor repeat blood culture. 3. Treat with IV for now and monitor temperature and the repeat blood culture. Once the repeat blood culture comes back negative, determination can be made for outpatient treatment with a switch to oral antibiotics when she is afebrile 48 hours or the repeat blood cultures are negative x 3 days. Thank you for this consultation. MD SERG Kwok/DARA , 04:26 PM , 05:36 PM
[2018-01-05] MEDS: Piperacil/Tazo 3.375 GM Premix 50 ML IV.SIG SCH (04:45)
[2018-01-05 10:28] LABS: Baso % (Auto) 0.4 % (0.0-2.0); Eos # (Auto) 0.1 th/mm3 (0.0-0.4); Eos % (Auto) 1.2 % (0.0-4.0); Hematocrit 32.7 % (35.0-46.0); Lymph # (Auto) 0.7 th/mm3 (1.0-4.8); Lymph % (Auto) 6.8 % (9.0-44.0); Mean Corpuscular HGB Conc 33.7 % (32.0-36.0); Mean Platelet Volume 9.9 fL (7.0-11.0); Mono # (Auto) 2.3 th/mm3 (0.0-0.9); Mono % (Auto) 23.5 % (0.0-8.0); Neut # (Auto) 6.5 th/mm3 (1.8-7.7); Neut % (Auto) 68.1 % (16.0-70.0); Platelet Count 127 th/mm3 (150-450); Red Blood Count 3.67 mil/mm3 (4.00-5.30); Red Cell Distribution Width 14.5 % (11.6-17.2); White Blood Count 9.6 th/mm3 (4.0-11.0)
[2018-01-05 10:58] LABS: Calcium 8.4 mg/dL (8.5-10.1); Carbon Dioxide 16.8 meq/L (21.0-32.0); Potassium 3.6 meq/L (3.5-5.1)
[2018-01-05 11:49] LABS: Eosinophils 1 % (0-4); Lymphocytes 10 % (9-44); Monocytes 21 % (0-8); Platelet Morphology Normal (Normal)
[2018-01-05] MEDS: Senna/Docusate Sodium 8.6/50 MG Tablet PO SCH ×2 (11:49→22:38)
[2018-01-05 11:50] LABS: RBC Morphology Normal (Normal)
[2018-01-05] MEDS: Piperacil/Tazo 2.25 GM Premix 50 ML IV.SIG SCH ×3 (11:50→22:38)
--- NOTE | 2018-01-05 15:41 | P.PNIM ---
Subjective Interval history: She is feeling better than yesterday. She says she has some nausea. No constipation. She does smoke marijuana, however has not smoked in several days. Physical Exam Vital signs: Vital Signs 01/04/18 16:00 01/04/18 20:00 01/05/18 00:00 Temperature 98.7 F 98.8 F 98.4 F Pulse Rate 76 72 66 Respiratory Rate 20 20 20 Blood Pressure 130/92 H 136/102 H 140/97 H Pulse Oximetry 99 98 71 L 01/05/18 04:00 01/05/18 04:52 01/05/18 07:44 Temperature 98.2 F 98.0 F Pulse Rate 71 65 69 Respiratory Rate 20 20 Blood Pressure 141/88 H 143/90 H Pulse Oximetry 100 100 01/05/18 11:20 Temperature 98.4 F Pulse Rate 69 Respiratory Rate 20 Blood Pressure 132/94 H Pulse Oximetry 100 Intake & Output 01/04/18 01/05/18 01/05/18 18:59 06:59 18:59 Intake Total 1050 / 1050 2830 / 2830 950 / 950 Balance 1050 / 1050 2830 / 2830 950 / 950 Intake: IV 250 / 250 2350 / 2350 950 / 950 NS + KCl 40 mEq Inj 1,000 ML @ 1000 / 1000 900 / 900 100 mls/hr IV.CONT .Q10H [facility] Rx #:[id number] NS Inj 1,000 ML @ 100 mls/hr IV 1000 / 1000 .CONT .Q10H LUZ MARINA Rx#:[id number] Magnesium Sulfate 1 gm/D5W 100 100 / 100 ml Premix 100 ML @ 100 mls/hr IV.SIG ONCE ONE Rx#:[id number] Zosyn 2.25 GM Premix 50 ML @ 50 / 50 100 mls/hr IV.SIG Q6H LUZ MARINA Rx#: [id number] Zosyn 3.375 GM Premix 50 ML @ 50 / 50 150 / 150 100 mls/hr IV.SIG Q6H LUZ MARINA Rx#: [id number] KCl 10 mEq Premix Inj 10 meq In 200 / 200 100 / 100 100 ml @ 100 mls/hr IV.SIG Q1H LUZ MARINA Rx#:[id number] Oral 800 / 800 480 / 480 Other: # Voids 4 3 # Bowel Movements 4 Narrative: GENERAL: Sitting up in bed. Appears comfortable. Alert and oriented SKIN: Warm and dry. HEAD: Normocephalic. EYES: No scleral icterus. No injection or drainage. NECK: Supple, trachea midline. No JVD. CARDIOVASCULAR: Regular rate and rhythm without murmurs, gallops, or rubs. RESPIRATORY: Breath sounds equal bilaterally. No accessory muscle use. GASTROINTESTINAL: Abdomen soft, non-tender, nondistended. MUSCULOSKELETAL: No cyanosis, or edema. BACK: Nontender without obvious deformity. No CVA tenderness. Results - Labs CBC & Chem 7: 01/05/18 09:56 01/05/18 09:56 Laboratory Results - last 24 hr 01/04/18 01/05/18 01/05/18 15:12 09:56 09:56 WBC 9.6 RBC 3.67 L Hgb 11.0 L Hct 32.7 L MCV 89.0 MCH 30.0 MCHC 33.7 RDW 14.5 Plt Count 127 L MPV 9.9 Prelim Diff (Auto) Slide review pending Neut % (Auto) 68.1 Lymph % (Auto) 6.8 L [place] % (Auto) 23.5 H Eos % (Auto) 1.2 Baso % (Auto) 0.4 Neut # (Auto) 6.5 Lymph # (Auto) 0.7 L [place] # (Auto) 2.3 H Eos # (Auto) 0.1 Baso # (Auto) 0.0 WBC Differential Manual diff final Seg Neuts % (Manual) 66 Band Neuts % (Manual) 1 Lymphocytes % (Manual) 10 Monocytes % (Manual) 21 H Eosinophils % (Manual) 1 Basophils % (Manual) 1 Abs Neuts (Manual) 6.4 Differential Comment . Platelet Estimate Low L Platelet Morphology Normal RBC Morphology Normal Sodium 139 Potassium 3.6 D Chloride 111 H Carbon Dioxide 16.8 L Anion Gap 11 BUN 20 H Creatinine 1.13 H Estimated GFR 63 L Random Glucose 96 Calcium 8.4 L Total Creatine Kinase 214 H CK-MB (CK-2) 1.4 CK-MB (CK-2) % 0.7 Microbiology 01/02/18 23:25 Blood - Peripheral Aerobic Blood Culture - Final Escherichia coli 01/02/18 23:25 Blood - Peripheral Anaerobic Blood Culture - Final Escherichia coli 01/03/18 20:42 Blood - Peripheral Aerobic Blood Culture - Preliminary No growth in 2 days 01/03/18 20:42 Blood - Peripheral Anaerobic Blood Culture - Preliminary No growth in 2 days 01/03/18 20:35 Blood - Peripheral Aerobic Blood Culture - Preliminary No growth in 2 days 01/03/18 20:35 Blood - Peripheral Anaerobic Blood Culture - Preliminary No growth in 2 days 01/02/18 23:15 Blood - Peripheral Aerobic Blood Culture - Final Escherichia coli 01/02/18 23:15 Blood - Peripheral Anaerobic Blood Culture - Final Escherichia coli 01/02/18 23:06 Clean Catch Urine Urine Culture - Final Escherichia coli Assessment and Plan - Assessment (1) SIRS (systemic inflammatory response syndrome) Code(s): R65.10 - Systemic inflammatory response syndrome (SIRS) of non- infectious origin without acute organ dysfunction Status: Acute (2) BESSY (acute kidney injury) Code(s): N17.9 - Acute kidney failure, unspecified Status: Acute (3) UTI (urinary tract infection) Code(s): N39.0 - Urinary tract infection, site not specified Status: Acute - Plan // severe Sepsis: Temp 100.8, WBC 13, Lactic Acid 2.9, Source-UTI. S/p Blood Cultures, Rocephin IV, follow up cultures, continue IV Abx, IVF for hydration, repeat Lactic Acid. CXR w/ no acute findings, images reviewed. = With acute kidney injury. Leukocytosis has improved. Urine has returned with pansensitive E. coli, however given the fact the patient still had fevers on Rocephin, will follow results of blood culture. Infectious disease consult pending. Continue antibiotics. Secondary to UTI. = Appreciate infectious disease assistance. If cultures continue negative and no more fevers, hopefully can discharge tomorrow on by mouth antibiotics., Levaquin. //Hypokalemia. Magnesium 1.6 yesterday. Potassium 2.5. rePlace. Monitor. = 01/05. Potassium improved 3.6. Will monitor. //Nausea. Likely secondary to marijuana hyperemesis syndrome. Have recommended discontinuing marijuana. Will use Marinol for now while inpatient. Could also be secondary to antibiotics. //UTI: U/a w/ UTI, IVF, IV Abx, Monitor I/O // BESSY: Creatinine 2.0, no previous labs for comparison however presumably new. IVF for hydration, repeat labs in am. == Creatinine 1.4. Improving. //DVT Prophylaxis: SCD/Teds Discharge Planning: Await results of repeat blood cultures. Discharge when cleared by infectious disease. Hopefully tomorrow on by mouth Levaquin.
[2018-01-05] MEDS ORDERED: DRONABINOL 2.5 MG CAPSULE PO SCH (16:00)
[2018-01-06] MEDS: Piperacil/Tazo 2.25 GM Premix 50 ML IV.SIG SCH (03:58)
[2018-01-06 08:04] LABS: Calcium 8.8 mg/dL (8.5-10.1); Potassium 4.1 meq/L (3.5-5.1)
--- NOTE | 2018-01-06 08:56 | P.PNIM ---
Subjective Interval history: Patient says she is feeling all right. Denies any chest pain or shortness of breath. Nausea has improved, however still present. No vomiting. Denies any dysuria. Physical Exam Vital signs: Vital Signs 01/05/18 11:15 01/05/18 11:20 01/05/18 15:48 Temperature 98.4 F 98.3 F Pulse Rate 61 69 62 Respiratory Rate 20 20 Blood Pressure 132/94 H 147/96 H Pulse Oximetry 100 100 01/05/18 22:43 01/05/18 23:42 01/06/18 08:00 Temperature 98.6 F 96.5 F L Pulse Rate 71 60 Respiratory Rate 20 Blood Pressure 153/103 H 130/86 176/99 H Pulse Oximetry 100 Intake & Output 01/05/18 01/06/18 01/06/18 18:59 06:59 18:59 Intake Total 1100 / 1100 1100 / 1100 Balance 1100 / 1100 1100 / 1100 Intake: IV 1100 / 1100 1100 / 1100 NS + KCl 40 mEq Inj 1,000 ML @ 1000 / 1000 1000 / 1000 100 mls/hr IV.CONT .Q10H [facility] Rx #:[id number] Zosyn 2.25 GM Premix 50 ML @ 100 / 100 100 / 100 100 mls/hr IV.SIG Q6H LUZ MARINA Rx#: [id number] Other: # Voids 2 # Urine Diapers 2 Date of Last Bowel Movement 01/05/18 # Bowel Movements 2 # [place] 2 Narrative: GENERAL: Sitting up in bed. Appears comfortable. Alert and oriented SKIN: Warm and dry. HEAD: Normocephalic. EYES: No scleral icterus. No injection or drainage. NECK: Supple, trachea midline. No JVD. CARDIOVASCULAR: Regular rate and rhythm without murmurs, gallops, or rubs. RESPIRATORY: Breath sounds equal bilaterally. No accessory muscle use. GASTROINTESTINAL: Abdomen soft, non-tender, nondistended. MUSCULOSKELETAL: No cyanosis, or edema. BACK: Nontender without obvious deformity. No CVA tenderness. Results - Labs CBC & Chem 7: 01/05/18 09:56 01/06/18 07:00 Laboratory Results - last 24 hr 01/05/18 01/05/18 01/06/18 09:56 09:56 07:00 WBC 9.6 RBC 3.67 L Hgb 11.0 L Hct 32.7 L MCV 89.0 MCH 30.0 MCHC 33.7 RDW 14.5 Plt Count 127 L MPV 9.9 Prelim Diff (Auto) Slide review pending Neut % (Auto) 68.1 Lymph % (Auto) 6.8 L [place] % (Auto) 23.5 H Eos % (Auto) 1.2 Baso % (Auto) 0.4 Neut # (Auto) 6.5 Lymph # (Auto) 0.7 L [place] # (Auto) 2.3 H Eos # (Auto) 0.1 Baso # (Auto) 0.0 WBC Differential Manual diff final Seg Neuts % (Manual) 66 Band Neuts % (Manual) 1 Lymphocytes % (Manual) 10 Monocytes % (Manual) 21 H Eosinophils % (Manual) 1 Basophils % (Manual) 1 Abs Neuts (Manual) 6.4 Differential Comment . Platelet Estimate Low L Platelet Morphology Normal RBC Morphology Normal Sodium 139 141 Potassium 3.6 D 4.1 Chloride 111 H 115 H Carbon Dioxide 16.8 L 16.0 L Anion Gap 11 10 BUN 20 H 14 Creatinine 1.13 H 0.92 Estimated GFR 63 L 80 L Random Glucose 96 98 Calcium 8.4 L 8.8 Microbiology 01/02/18 23:25 Blood - Peripheral Aerobic Blood Culture - Final Escherichia coli 01/02/18 23:25 Blood - Peripheral Anaerobic Blood Culture - Final Escherichia coli 01/03/18 20:42 Blood - Peripheral Aerobic Blood Culture - Preliminary No growth in 2 days 01/03/18 20:42 Blood - Peripheral Anaerobic Blood Culture - Preliminary No growth in 2 days 01/03/18 20:35 Blood - Peripheral Aerobic Blood Culture - Preliminary No growth in 2 days 01/03/18 20:35 Blood - Peripheral Anaerobic Blood Culture - Preliminary No growth in 2 days 01/02/18 23:15 Blood - Peripheral Aerobic Blood Culture - Final Escherichia coli 01/02/18 23:15 Blood - Peripheral Anaerobic Blood Culture - Final Escherichia coli Assessment and Plan - Assessment (1) SIRS (systemic inflammatory response syndrome) Code(s): R65.10 - Systemic inflammatory response syndrome (SIRS) of non- infectious origin without acute organ dysfunction Status: Acute (2) BESSY (acute kidney injury) Code(s): N17.9 - Acute kidney failure, unspecified Status: Acute (3) UTI (urinary tract infection) Code(s): N39.0 - Urinary tract infection, site not specified Status: Acute - Plan // severe Sepsis: Temp 100.8, WBC 13, Lactic Acid 2.9, Source-UTI. S/p Blood Cultures, Rocephin IV, follow up cultures, continue IV Abx, IVF for hydration, repeat Lactic Acid. CXR w/ no acute findings, images reviewed. = With acute kidney injury. Leukocytosis has improved. Urine has returned with pansensitive E. coli, however given the fact the patient still had fevers on Rocephin, will follow results of blood culture. Infectious disease consult pending. Continue antibiotics. Secondary to UTI. = Appreciate infectious disease assistance. If cultures continue negative and no more fevers, hopefully can discharge tomorrow on by mouth antibiotics., Levaquin. =01/06 Discharge on Levaquin to complete treatment course. //Hypokalemia. Magnesium 1.6 yesterday. Potassium 2.5. rePlace. Monitor. = 01/05. Potassium improved 3.6. Will monitor. = Resolved. //Non-anion gap metabolic acidosis. Likely secondary to post-ATN. Although kidney function has improved, likely losing bicarb and urine. Will order labs for urine anion gap. Patient will need to follow with primary care. Patient conveys understanding. Will start on moderate dose bicarb. Again, follow with primary care. //Nausea. Likely secondary to marijuana hyperemesis syndrome. Have recommended discontinuing marijuana. Will use Marinol for now while inpatient. Could also be secondary to antibiotics. = Improved. Advised to avoid marijuana. Follow with primary care. //UTI: U/a w/ UTI, IVF, IV Abx, Monitor I/O.. Antibiotics to complete treatment course. // BESSY: Creatinine 2.0, no previous labs for comparison however presumably new. IVF for hydration, repeat labs in am. == Creatinine 1.4. Improving. //DVT Prophylaxis: SCD/Teds Discharge Planning: Blood cultures negative 48 hours. No fevers. Discharged on Levaquin to complete treatment course.
[2018-01-06] MEDS ORDERED: Sodium Bicarbonate 650 MG Tablet PO SCH (09:00)
--- NOTE | 2018-01-06 09:06 | P.DS ---
Date of admission: 01/03/18 00:04 Primary care physician: No Primary Care Physician Brief History from admission: This is a 47-year-old female with a PMH of HTN who presented to the ER with complaints of malaise, subjective fever/chills and headache. Pt is poor historian, difficult to obtain concrete information, but states she stopped taking her BP medications approx 1 month ago, in addition to several other medications but cannot tell me which ones. Notes ongoing headache since then. Now w/ fever/chills x1 day in addition to generalized fatigue/malaise. Denies cough, chest pain or sick contacts. No nausea, vomiting or diarrhea. On arrival, BP 126/82, HR 89, O2 sat 98% on RA, Temp 100.8. WBC 13.7. Platelets 127, bands 13%. Creatinine 2.0, no previous labs for comparison. Lactic Acid 2.9. UA positive UTI. CXR with no acute findings. CT Head negative. DS: Diagnosis - Discharge Diagnosis (1) SIRS (systemic inflammatory response syndrome) Status: Acute (2) BESSY (acute kidney injury) Status: Acute (3) UTI (urinary tract infection) Status: Acute DS: Medications - Discharge Medications Prescriptions: amlodipine 5 mg PO DAILY #30 tab levofloxacin 750 mg PO DAILY #14 tab sodium bicarbonate 650 mg PO DAILY #30 tab DS: Summary Hospital Course: Patient presented with severe sepsis, fever, leukocytosis, lactic acid 2.9. Acute kidney injury with creatinine 2.0 which resolved with IV fluids and antibiotics. Patient found to have UTI, and also came back positive with 4-4 blood cultures for E. coli. Infectious disease was consulted. Repeat blood cultures negative 48 hours. Patient afebrile 72 hours. Patient will continue on Levaquin to complete treatment course. Patient is found to have elevated blood pressures in the 170 systolic. Will be started on amlodipine. Patient is also noted to have non-anion gap metabolic acidosis likely secondary to post BESSY. Was started on bicarbonate supplementation. Follow-up with primary care as outpatient stress. Patient conveys understanding. For problem based summary from most recent progress note, please see below. // severe Sepsis: Temp 100.8, WBC 13, Lactic Acid 2.9, Source-UTI. S/p Blood Cultures, Rocephin IV, follow up cultures, continue IV Abx, IVF for hydration, repeat Lactic Acid. CXR w/ no acute findings, images reviewed. = With acute kidney injury. Leukocytosis has improved. Urine has returned with pansensitive E. coli, however given the fact the patient still had fevers on Rocephin, will follow results of blood culture. Infectious disease consult pending. Continue antibiotics. Secondary to UTI. = Appreciate infectious disease assistance. If cultures continue negative and no more fevers, hopefully can discharge tomorrow on by mouth antibiotics., Levaquin. =01/06 Discharge on Levaquin to complete treatment course. //Hypokalemia. Magnesium 1.6 yesterday. Potassium 2.5. rePlace. Monitor. = 01/05. Potassium improved 3.6. Will monitor. = Resolved. //Non-anion gap metabolic acidosis. Likely secondary to post-ATN. Although kidney function has improved, likely losing bicarb and urine. Will order labs for urine anion gap. Patient will need to follow with primary care. Patient conveys understanding. Will start on moderate dose bicarb. Again, follow with primary care. //Nausea. Likely secondary to marijuana hyperemesis syndrome. Have recommended discontinuing marijuana. Will use Marinol for now while inpatient. Could also be secondary to antibiotics. = Improved. Advised to avoid marijuana. Follow with primary care. //UTI: U/a w/ UTI, IVF, IV Abx, Monitor I/O.. Antibiotics to complete treatment course. // BESSY: Creatinine 2.0, no previous labs for comparison however presumably new. IVF for hydration, repeat labs in am. == Creatinine 1.4. Improving. //DVT Prophylaxis: SCD/Teds Discharge Planning: Blood cultures negative 48 hours. No fevers. Discharged on Levaquin to complete treatment course. - Time Spent with Patient Total time spent providing and/or coordinating discharge services: Greater than 30 minutes - Quality: VTE Deep Vein Thrombosis/Pulmonary Embolism Present on Admission: No Exam Vital signs: Vital Signs 01/05/18 11:15 01/05/18 11:20 01/05/18 15:48 Temperature 98.4 F 98.3 F Pulse Rate 61 69 62 Respiratory Rate 20 20 Blood Pressure 132/94 H 147/96 H Pulse Oximetry 100 100 01/05/18 22:43 01/05/18 23:42 01/06/18 08:00 Temperature 98.6 F 96.5 F L Pulse Rate 71 60 Respiratory Rate 20 Blood Pressure 153/103 H 130/86 176/99 H Pulse Oximetry 100 Intake & Output 01/05/18 01/06/18 01/06/18 18:59 06:59 18:59 Intake Total 1100 / 1100 1100 / 1100 Balance 1100 / 1100 1100 / 1100 Intake: IV 1100 / 1100 1100 / 1100 NS + KCl 40 mEq Inj 1,000 ML @ 1000 / 1000 1000 / 1000 100 mls/hr IV.CONT .Q10H LUZ MARINA Rx #:[id number] Zosyn 2.25 GM Premix 50 ML @ 100 / 100 100 / 100 100 mls/hr IV.SIG Q6H LUZ MARINA Rx#: [id number] Other: # Voids 2 # Urine Diapers 2 Date of Last Bowel Movement 01/05/18 # Bowel Movements 2 # Emeses 2 Results Procedures completed during hospitalization: No invasive procedures. Labs on day of discharge: Labs from last 24 hours 01/06/18 01/05/18 01/05/18 07:00 09:56 09:56 WBC 9.6 RBC 3.67 L Hgb 11.0 L Hct 32.7 L MCV 89.0 MCH 30.0 MCHC 33.7 RDW 14.5 Plt Count 127 L MPV 9.9 Prelim Diff (Auto) Slide review pending Neut % (Auto) 68.1 Lymph % (Auto) 6.8 L Marin % (Auto) 23.5 H Eos % (Auto) 1.2 Baso % (Auto) 0.4 Neut # (Auto) 6.5 Lymph # (Auto) 0.7 L Marin # (Auto) 2.3 H Eos # (Auto) 0.1 Baso # (Auto) 0.0 WBC Differential Manual diff final Seg Neuts % (Manual) 66 Band Neuts % (Manual) 1 Lymphocytes % (Manual) 10 Monocytes % (Manual) 21 H Eosinophils % (Manual) 1 Basophils % (Manual) 1 Abs Neuts (Manual) 6.4 Differential Comment . Platelet Estimate Low L Platelet Morphology Normal RBC Morphology Normal Sodium 141 139 Potassium 4.1 3.6 D Chloride 115 H 111 H Carbon Dioxide 16.0 L 16.8 L Anion Gap 10 11 BUN 14 20 H Creatinine 0.92 1.13 H Estimated GFR 80 L 63 L Random Glucose 98 96 Calcium 8.8 8.4 L Preliminary micro results at discharge 01/03/18 20:42 Aerobic Blood Culture - Preliminary Blood - Peripheral No growth in 2 days Anaerobic Blood Culture - Preliminary No growth in 2 days 01/03/18 20:35 Aerobic Blood Culture - Preliminary Blood - Peripheral No growth in 2 days Anaerobic Blood Culture - Preliminary No growth in 2 days - Impressions ITS Impressions Chest X-Ray 01/02/18 19:53 CONCLUSION: No acute cardiopulmonary process. Abdomen/Bladder Ultrasound 01/03/18 00:00 CONCLUSION: Unremarkable ultrasound examination of the kidneys. Head CT 01/03/18 19:50 CONCLUSION: Negative CT Head non contrast. Discharge Plan - Discharge Disposition Patient Disposition: Discharge Home - Discharge Condition Condition: Stable - Discharge Order Discharge Orders: Discharge Order (Routine); Ordered 01/06/18 Ordered By: Duran Lombardo - Discharge Details Anticipated Discharge Date: 01/06/18 Discharge Comment: please schedule PCP followup - Physicians Team Primary Care Provider: Primary Care Arlin Siu Attending Provider: Duran Lombardo Other Providers: Pedro Trevino MD
[2018-01-06 09:42] LABS: Chloride,Urine Random 120 meq/L
--- NOTE | 2018-01-06 16:37 | ECG ---
Date Performed: 01/02/2018 Time Performed: 20:58:30 PTAGE: 47 years EKG: Sinus rhythm NORMAL ECG NO PREVIOUS TRACING DOCTOR: Kate Clancy Interpretating Date/Time 01/06/2018 16:35:48
== END 2018-01-06 09:41 | disposition home or self-care (01) ==
LOC: NEPD 13:57 → NEDA 01-03 00:04 → NEPFCDU 01-03 01:20
PROVIDERS: ADMIT Internal Medicine; ATTEND Internal Medicine
DX: A41.51 Sepsis due to Escherichia coli [E. coli]; R65.20 Severe sepsis without septic shock; E87.2 Acidosis; N39.0 Urinary tract infection, site not specified; N17.9 Acute kidney failure, unspecified; E87.6 Hypokalemia